=== PATIENT | female | born 1985 | race Caucasian/White ===

== ENCOUNTER → 2018-04-24 16:10 | Outpatient (CLI) | payer BC, SELFPAY ==
[2018-04-24 17:28] LABS: Absolute Lymphocyte Count 1.64 X10^3/ul (0.83-4.51); Absolute Neutrophil Count 4.5 X10^3/uL (2.0-7.7); Eosinophil# 0.03 X10^3/uL; Eosinophils% 0.4 % (0-5); Hematocrit 34.3 % (37-47); Hemoglobin 11.7 g/dl (12.0-15.0); Lymphocyte # 1.64 X10^3/ul (4.0); Lymphocyte % 24.5 % (19-41); Mean Corp Hgb Conc 34.1 g/gl (32-36); Mean Corpuscular Hgb 31.5 pg (27.0-32.0); Mean Corpuscular Volume 92.2 fL (81-99); Mean Platelet Vol. 9.9 fl (6.2-12.0); Monocyte% 7.5 % (0-10); Neutrophil % 67.3 % (47-70); Platelet Count 276 K/mm3 (150-450); RBC Distribution Width CV 12.7 % (11.6-14.6); RBC Distribution Width SD 41.5 fl (35.1-43.9); Red Blood Count 3.72 M/mm3 (4.2-5.4); White Blood Count 6.7 K/mm3 (4.4-11.0)
[2018-04-24 18:32] LABS: POSITIVE COUNT NO; POSITIVE DIFFERENTIAL NO; POSITIVE MORPHOLOGY NO
[2018-04-24 18:38] LABS: Color, Urine Yellow (Yellow); Glucose, Dipstick Normal (Normal); Ketone-Dipstick Negative (Negative); Leukocyte Esterase-Dipstick Negative /ul (Negative); Nitrite-Dipstick Negative (Negative); Occult Blood-Urine Negative /ul (Negative); Protein-Dipstick Negative (Negative); Specific Gravity, Urine 1.015 (1.002-1.030); Urine Bilirubin Dipstick Negative (Negative); Urine Clarity Clear (Clear); Urine Urobilinogen Normal (Normal); Urine pH 6.5 (5.0 - 8.0)
[2018-04-24 18:44] LABS: HIV - WCH Non-Reactive (Nonreactive); Rubella IgG 135.6 IU/mL; Vitamin D,25 Hydroxy 16.4 ng/mL (29.95-100.01)
[2018-04-24 19:21] LABS: Amphetamine Urine VISTA NEGATIVE (<1000 ng/mL); Barbiturate Urine VISTA NEGATIVE (< 200 ng/mL); Benzodiazepine Urine VISTA NEGATIVE (< 200 ng/mL); Cocaine Urine VISTA NEGATIVE (< 300 ng/mL); Ecstacy Urine VISTA NEGATIVE (< 500 ng/mL); Methadone Urine VISTA NEGATIVE (< 300 ng/mL); PCP Urine VISTA NEGATIVE (< 25 ng/mL); THC Urine VISTA NEGATIVE (< 50 ng/mL); Vista UDS pH Range 6
[2018-04-24 20:09] LABS: Chlamydia Trachomatis by PCR Negative (Negative); Neisserai gonorrhoeae by PCR Negative (Negative); Probe Check PASS; Sample Adequacy Control PASS; Specimen Processing Control PASS
[2018-04-27 11:37] LABS: HEPATITIS B SURFACE AG Negative (Negative); Hep C Antibodies <0.1 s/co ratio (0.0-0.9)
[2018-05-01 02:01] LABS: Prenatal RPR NONREACTIVE (NONREACTIVE)
== END ==
PROVIDERS: Visit Provider Obstetrics & Gynecology
DX: Z11.3 Encounter for screening for infections with a predominantly sexual mode of transmission (principal); Z32.01 Encounter for pregnancy test, result positive
CPT/HCPCS: 36415; 80307; 81002; 82306; 83036; 84443; 85025; 86703; 86762; 86803; 87340; 87491; 87591

== ENCOUNTER → 2018-06-22 09:57 | Outpatient (CLI) | payer BC, SELFPAY ==
[2018-06-25 03:08] LABS: AFP MoM Value 1.29 (.); AFP Value-EIA 38.2 ng/mL (.); Comment Report (.); DIA MoM Value 1.59 (.); DIA Value-EIA 211.11 pg/mL (.); DSR (By Age) 374 (.); DSR (Second Trimester) 1870 (.); Gestat. Age Based On As provided (.); Gestational Age 17.2 WEEKS (.); Maternal Age At EDD 33.9 yr (.); hCG MoM 1.73 (.)
== END ==
PROVIDERS: Visit Provider Obstetrics & Gynecology
DX: Z34.02 Encounter for supervision of normal first pregnancy, second trimester (principal)
CPT/HCPCS: 36415; 82105; 82677; 84702; 86336

== ENCOUNTER 2018-07-05 22:37 | Emergency (ER) | payer BC, SELFPAY ==
[2018-07-05 22:37] VITALS: BP 141/84; PULSE 103; RESP 22; TEMP 36.6; O2SAT 100; BMI 33.2
[2018-07-05] MEDS: Albuterol 2.5 MG/3 ML VIAL.NEB. INHALATION (23:01)
[2018-07-05 23:02] VITALS: PULSE 108; RESP 18
--- NOTE | 2018-07-05 23:16 | ED.VISSUMM ---
- ER Visit Summary Date of Service: 07/05/18 Chief Complaint: Cough History of Present Illness: The patient is a 32 F who presents with cough. She has had this for 2 days. Her cough is productive of yellow sputum. She denies fevers. No history of asthma. She is currently 20 weeks gestation. She has been trying Mucinex and Tylenol without any relief. She is also been doing saline nasal spray. Physical Examination: Vital signs reviewed. HEENT exam does show some slight posterior oropharyngeal erythema. Heart is regular rate and rhythm without murmurs. Lungs are clear to auscultation. Abdomen is soft and nontender. Extremities reveal no edema. Skin exam normal. Neurologic exam normal. Test Results: None performed Emergency Department Course and Treatment: Patient was given albuterol. Due to her symptoms I will give her a azithromycin. I will also give her an albuterol inhaler. She will follow-up with her PCP and CLINICAL LAB SCIENTIST. Treatment Plan: [] Disposition: Discharge Impression: Acute bronchitis This note was generated with smsPREP dictation software. It may contain incorrect words, spelling, and punctuation that were not noted in review of the chart prior to signing ED Disposition - Plan for ED Patient: Chief Complaint: Cough Referrals: Zaheer Hamilton MD [Primary Care Provider] -
--- NOTE | 2018-07-05 23:41 | ED.DCSUM_ITS ---
- ER Visit Summary Date of Service: 07/05/18 Chief Complaint: Cough History of Present Illness: The patient is a 32 F who presents with cough. She has had this for 2 days. Her cough is productive of yellow sputum. She denies fevers. No history of asthma. She is currently 20 weeks gestation. She has be en trying Mucinex and Tylenol without any relief. She is also been doing saline nasal spray. Physical Examination: Vital signs reviewed. HEENT exam does show some slight posterior oropharyngeal erythema. Heart is regular rate and rhythm without murmurs. Lungs are clear to auscultation. Abdomen is soft and nontender. Extremities reveal no edema. Skin exam normal. Neurologic exam normal. Test Results: None performed Emergency Department Course and Treatment: Patient was given albuterol. Due to her symptoms I will give her a azithromycin. I will also give her an albuterol inhaler. She will follow-up with her PCP and JOIST SETTER. Treatment Plan: [] Disposition: Discharge Impression: Acute bronchitis This note was generated with Volo[employer] dictation software. It may contain incorrect words, spelling, and punctuation that were not noted in review of the chart prior to signing ED Disposition - Plan for ED Patient: Chief Complaint: Cough Referrals: Zaheer Hamilton MD [Primary Care Provider] -
--- NOTE | 2018-07-05 23:41 | ED.DEP ---
ED Disposition - Plan for ED Patient: Disposition: Home or Assisted Living Chief Complaint: Cough Instructions: Acute Bronchitis Prescriptions: Albuterol Inhaler [Ventolin Hfa] 1 - 2 puff INHALATION Q4H PRN PRN #1 inhaler PRN Reason: Wheezing Azithromycin [Zithromax] 250 mg PO DAILY #4 tab Referrals: Zaheer Hamilton MD [Primary Care Provider] -
[2018-07-05] MEDS: Azithromycin 250 MG Tablet 500 MG PO (23:53)
[2018-07-05 23:56] VITALS: BP 129/69; PULSE 100; RESP 20; TEMP 36.5; O2SAT 98
== END 2018-07-05 23:57 | disposition home or self-care (01) ==
PROVIDERS: Emergency Provider Emergency Medicine; Family Provider Family Medicine; PCP Family Medicine
DX: O99.512 Diseases of the respiratory system complicating pregnancy, second trimester (principal); J20.9 Acute bronchitis, unspecified; Z3A.20 20 weeks gestation of pregnancy
CPT/HCPCS: 94640; 99283

== ENCOUNTER → 2018-09-15 | Outpatient (CLI) | payer BC, SELFPAY ==
[2018-09-15 17:16] LABS: Hematocrit 31.3 % (37-47); Hemoglobin 10.5 g/dl (12.0-15.0); Mean Corp Hgb Conc 33.5 g/gl (32-36); Mean Corpuscular Hgb 30.6 pg (27.0-32.0); Mean Corpuscular Volume 91.3 fL (81-99); Mean Platelet Vol. 9.9 fl (6.2-12.0); Platelet Count 252 K/mm3 (150-450); RBC Distribution Width CV 14.1 % (11.6-14.6); RBC Distribution Width SD 45.2 fl (35.1-43.9); Red Blood Count 3.43 M/mm3 (4.2-5.4); White Blood Count 8.1 K/mm3 (4.4-11.0)
[2018-09-15 17:18] LABS: Scan Indicated on CBC? Y/N NO
[2018-09-15 17:34] LABS: Glucose Challenge Gest 1H 50g 170 mg/dL (70-140)
[2018-09-15 17:47] LABS: Vitamin D,25 Hydroxy 27.3 ng/mL (29.95-100.01)
[2018-09-16 15:29] LABS: Ferritin 6 ng/mL (8-252); Iron Binding Capacity,Total 495 ug/dL (250-450)
== END | disposition home or self-care (01) ==
PROVIDERS: Visit Provider Obstetrics & Gynecology
DX: O99.283 Endocrine, nutritional and metabolic diseases complicating pregnancy, third trimester (principal); E55.9 Vitamin D deficiency, unspecified; O99.019 Anemia complicating pregnancy, unspecified trimester; Z3A.00 Weeks of gestation of pregnancy not specified
CPT/HCPCS: 36415; 82306; 82728; 82950; 83550; 85027

== ENCOUNTER → 2018-09-21 06:59 | Outpatient (CLI) | payer BC, SELFPAY ==
[2018-09-21 07:43] LABS: Glucose GTT-Gestation. Fasting 85 mg/dL (<105)
[2018-09-21 08:45] LABS: Glucose GTT-Gestational 1 Hr 143 mg/dL (<190)
[2018-09-21 10:13] LABS: Glucose GTT-Gestational 2 Hr 121 mg/dL (<165)
[2018-09-21 11:04] LABS: Glucose GTT-Gestational 3 Hr 114 L (<145)
== END ==
PROVIDERS: Family Provider Family Medicine; PCP Family Medicine; Referring Provider Obstetrics & Gynecology; Visit Provider Obstetrics & Gynecology
DX: O24.912 Unspecified diabetes mellitus in pregnancy, second trimester (principal); Z3A.00 Weeks of gestation of pregnancy not specified
CPT/HCPCS: 36415; 82951; 82952

== ENCOUNTER → 2018-11-03 11:10 | Outpatient (CLI) | payer BC, SELFPAY | PROVIDERS: Visit Provider Obstetrics & Gynecology | DX: Z36.85 Encounter for antenatal screening for Streptococcus B (principal) | CPT/HCPCS: 87081 ==

== ENCOUNTER 2018-11-19 12:05 | Outpatient (CLI) | payer BC, SELFPAY ==
[2018-11-19 12:31] VITALS: BMI 39.9
--- NOTE | 2018-11-19 12:39 | NURSING ---
unable to reach cervix on exam. Pt states checked in office on and cervix closed.
--- NOTE | 2018-11-19 13:13 | NURSING ---
This RN unable to reach cervix due to high station.
--- NOTE | 2018-11-19 13:14 | NURSING ---
Dr. Lawton discharging pt. No repeat exam ordered
--- NOTE | 2018-11-20 08:49 | OB.TRI.NOTE ---
History of Present Illness Date of Service: 11/19/18 Was patient seen by the physician?: No Reason For Visit: DECREASED MOVEMENT,R/O LABOR Date of Service: 11/19/18 Final GEETA: 11/28/18 Gestational age: 38 Weeks and 5 Days History of Present Illness: 32 yo female at 33 5/7 wk presents for labor check and dec movement. Allergies No Known Allergies Allergy (Verified 07/05/18 22:40) NST - FHR Rate Baby A Baseline: 140-150s avg variability. accels to 180s Variability:: Moderate Accelerations:: 15 x 15 Decelerations:: None NST Reactive:: Yes, Appropriate for gestational age FHR Category:: Category I Uterine Activity:: Irritability with rare UC Impression/Plan 38 5/7 wk false labor Reactive NST Home. Keep next ofc appt Return to hospital if inc s/sx of labor.
== END 2018-11-19 13:17 | disposition home or self-care (01) ==
LOC: WPOUT 12:14 → WP 12:15
PROVIDERS: Family Provider Family Medicine; PCP Family Medicine; Referring Provider Obstetrics & Gynecology; Visit Provider Obstetrics & Gynecology
DX: O47.1 False labor at or after 37 completed weeks of gestation (principal); O36.8130 Decreased fetal movements, third trimester, not applicable or unspecified; Z3A.38 38 weeks gestation of pregnancy
CPT/HCPCS: 59025; 59050; 99218; G0378

== ENCOUNTER 2018-12-06 19:30 | Inpatient (IN) | payer BC, SELFPAY ==
[2018-12-06 19:45] VITALS: BMI 40.0
[2018-12-06] MEDS: Lactated Ringers 1,000 ML 50 ML IV (19:45)
[2018-12-06 20:11] LABS: Absolute Lymphocyte Count 1.35 X10^3/ul (0.83-4.51); Absolute Neutrophil Count 4.7 X10^3/uL (2.0-7.7); Eosinophil# 0.03 X10^3/uL; Eosinophils% 0.5 % (0-5); Hematocrit 32.5 % (37-47); Hemoglobin 11.3 g/dl (12.0-15.0); Lymphocyte # 1.35 X10^3/ul (4.0); Lymphocyte % 20.7 % (19-41); Mean Corp Hgb Conc 34.8 g/gl (32-36); Mean Corpuscular Hgb 31.7 pg (27.0-32.0); Mean Corpuscular Volume 91.3 fL (81-99); Mean Platelet Vol. 10.4 fl (6.2-12.0); Monocyte# 0.48 X10^3/uL; Monocyte% 7.4 % (0-10); Neutrophil # 4.66 X10^3/uL (2.7-7.7); Neutrophil % 71.2 % (47-70); POSITIVE COUNT NO; POSITIVE DIFFERENTIAL NO; POSITIVE MORPHOLOGY NO; Platelet Count 211 K/mm3 (150-450); RBC Distribution Width CV 14.7 % (11.6-14.6); RBC Distribution Width SD 48.1 fl (35.1-43.9); Red Blood Count 3.56 M/mm3 (4.2-5.4); White Blood Count 6.5 K/mm3 (4.4-11.0)
[2018-12-06] MEDS: 0.9% Saline Lock 10 ML Syringe IV ×2 (20:20→23:26)
[2018-12-07] VITALS (9 sets, daily range): BP systolic 105–146; BP diastolic 65–91; PULSE 95–116; RESP 18; TEMP 36.9–37.6; O2SAT 96–98
[2018-12-07] MEDS: Lactated Ringers 1,000 ML 50 ML IV ×5 (00:35→18:02)
[2018-12-07] MEDS: Terbutaline 1 MG/ML Vial 0.25 MG SC (00:43)
[2018-12-07] MEDS: fentaNYL-bupivacaine (epidural) 100 ML BAG EPIDURAL ×3 (03:00→12:04)
[2018-12-07] MEDS: Oxytocin 30 units/NS 500 ml 30 UNITS/500 ML IV.SOLN IV (04:36)
[2018-12-07] MEDS: Acetaminophen 325 MG Tablet PO (17:57)
--- NOTE | 2018-12-07 18:00 | NURSING ---
this is replacing the epidural from this morning.
[2018-12-07] MEDS: CHLORHEXIDINE GLUC 2% CLOTH 1 EACH TOWELETTE TOPICAL (18:39)
[2018-12-07] MEDS: Sodium Citrate/Citric Acid 30 ML UDC PO (18:50)
[2018-12-07] MEDS: Cefazolin 2 GM in 0.9% Normal Saline 100 ML IV (19:06)
--- NOTE | 2018-12-07 19:16 | PLAC_PTH ---
PATIENT: JOSE A ANGUIANO LOC: [facility] U#:[id number] AGE/SX: 32/F ROOM: WP008 RE12/06/[address]: Dr. Tim Gao MD : 1985 BED: 1 DIS: 12/09/2018 SPEC #: [id number] RECD: 12/08/18 01:08 STATUS: SUZY TRUJILLOTammy #: [id number] CORRY: 12/07/18 19:[address]: Tim Gao DEPT: SURGICAL PATHOLOGY RECD BY: Kevin Rubio ENTERED: 12/08/18 09:41 SP TYPE: PLACENTA OTHR DR: Dr. Hector Hamilton MD Tissues: Placenta, NOS Procedures: Surgery Specimen Level V HEADER OPERATION: section PRE-OP DIAGNOSIS: Maternal fever TISSUE SUBMITTED: Placenta MICROSCOPIC DIAGNOSIS Placenta: Placental disc - third trimester placenta (575 gm). Membranes - no pathologic diagnosis. Umbilical cord - three blood vessels and no pathologic diagnosis. SJ:christelle 12/11/18 MICROSCOPIC DESCRIPTION Slides are reviewed. GROSS DESCRIPTION SPECIMEN: PLACENTA / CLINICAL INFORMATION: A. Weight: 3.72 kg B. Gestational Age: 41 weeks C. Sex: Female PLACENTAL WEIGHT (POST FIXATION): 575 gm PLACENTAL DIMENSIONS: 26 x 19 x 4 cm. PLACENTAL SHAPE: Triangular PLACENTAL WEIGHT FOR GESTATIONAL AGE: Within 10-99th percentile MEMBRANES - Present. The membranes are fragmented and partly detached from the placenta. A. Insertion: Marginal B. Site of rupture from edge: Distance of rupture cannot be assessed. C. Color of membrane: Amin-ohara D. Abnormalities: None UMBILICAL CORD - Present A. Color: Amin-ohara B. Insertion: Paracentral C. Length: 24 cm D. Diameter: 1 cm E. Number of vessels: Three F. Abnormalities: None PLACENTAL DISC - Present A. Color of surface: Amin-ohara B. surface abnormalities: None C. Maternal cotyledons: It is partly disrupted, however, appears to be complete. D. Attached retro placental clot: No clot E. Cut surface: Dark red and spongy F. Lesions: None G. Separate clot: Absent SECTIONS SUBMITTED: 1. Membrane roll 2. Cord, maternal end 3. Cord, end 4. Placental disc, and maternal surfaces 5. Placental disc, and maternal surfaces 6. Placental disc, and maternal surfaces SJ:christelle 12/09/18 TC:4 CPT: 57334
[2018-12-07] MEDS: Ketorolac 30 MG/ML Syringe IV (19:50)
--- NOTE | 2018-12-07 20:10 | PCM.HP.BLA ---
History and Physical Date of Admission: 12/06/18 History of this : 32 yo female Ab0 with EDC 11/28/2018 by Ultrasound, presents to Labor and Delivery. care remarkable for - Iron deficiency anemia, Abnormal glucola 170, Epidural planned. Pertinent Past Medical History: Non smoker Allergies: No Known Drug Allergies Medications: During - multivitamin tablet; Microgestin FE 1/20 (28) 1 mg-20 mcg (21)/75 mg (7) tablet; loratadine 10 mg tablet; 28 mg-800 mcg tablet; Vitamin B-6 50 mg capsule; Vitamin D3 4,000 unit capsule; ferrous sulfate 325 mg (65 mg iron) tablet; Protonix 40 mg tablet,delayed release Review of Systems: Non-contributory PHYSICAL EXAMINATION General Appearence: 32 yo female in no acute distress Vital Signs: AF, VSS Heart: RRR without rubs or gallops Lungs: CTA x 2 Breasts: deferred Abdomen: gravid Pelvis: Cervix: closed/thick/high Presentation: cephalic Station: Fetus: Size: AGA Movement: present Heart: present Impression /Plan: Postdates Intrauterine for induction. Preperations in progress for delivery. Plan cytotec induction.
--- NOTE | 2018-12-07 20:13 | OP.PCM_ITS ---
Delivery Classification: LAY Final GEETA: 11/28/18 Final GEETA Source: US <20 weeks Gestational age: 41 Weeks and 2 Days doctor who attended delivery (if requested by OB): Heather Malcolm - Tachy Indications: Failure to Progress, Occiput Posterior Presentation, Increasing Stress, Suspected Early Chorioamnionitis Description of Procedure: Surgeon: Tim Gao MD, FACOG Vice President Underwriting: SULAIMAN Clark Anesthesia: Oneil Roldan CRNA Anesthesia: Epidural with Duramorph Pre-Op Diagnosis: Failure to Progress, Increasing Stress, Suspected Early Chorioamnionitis Post Op Diagnosis: Failure to Progress, Occiput Posterior Presentation, Increasing Stress, Suspected Early Chorioamnionitis Procedure: Primary Low Transverse Cervical Caesarean Section Findings: Viable female with Apgars of 8/9 in occiput posterior presentation with clear amniotic fluid and normal three-vessel placenta. Indication: This is a 32-year-old who presents for her first at 41+ weeks gestation due to the above diagnosis. care has otherwise been uneventful. She was induced with Cytotec last evening and progressed to about 4 cm by 11 a.m. this morning where rupture of membrane showed clear fluid. She then further progressed to complete and pushing and after approximately 2 hours of pushing heart tones were noted to be in the 170-180s and maternal temperature spike to 101.0 ?F. Station remained at -2 to -3 with a narrow pelvis noted. Given this the patient desired that we proceed with the above surgery. She and her family were counseled regarding the risk and indications of this procedure including the possibility of bleeding infection and injury to surrounding structures such as bowel bladder. All questions were answered. Procedure: Patient was taken to the operating room where after epidural anesthesia was redosed, the patient was prepped and draped in usual sterile fashion; a Ramirez catheter had been previously placed. The abdomen was entered through a Pfannenstiel incision and peritoneum was entered bluntly. After developing a bladder flap on the lower uterine segment a low transverse incision was made on the uterus and head was delivered onto the operative field the nose mouth and oropharynx were bulb suctioned. Subsequently a viable female was born with Apgars of 8/9. The infant was noted to cry move all extremities vigorously on the operative field. The umbilical cord was doubly clamped and ligated and infant handed to the nursery personnel who were present for the delivery. Placenta was delivered and noted to be 3 vessels and normal. It was necessary to use a banjo curette to remove the remaining placental tissue which was somewhat adherent. Uterus was exteriorized and remaining placental tissue was removed. The uterus was then closed in 2 layers first with running locked 0 Vicryl suture followed by a second imbricating layer with 0 Vicryl suture. 0 Vicryl suture was then used in a horizontal mattress interrupted fashion to affect final hemostasis of the uterine incision line. Normal fallopian tubes and ovaries were visualized and the uterus was returned to the pelvis. Hemostasis was noted and rectus abdominis muscles were reapproximated in the midline with interrupted Number 0 Vicryl suture in a horizontal mattress fashion. Fascia was closed with running Number 1 PDS Strata fix suture. Subcutaneous tissue was irrigated with copious amounts of saline solution and then closed with running 3-0 Vicryl suture. Skin was closed with 4-0 monocryl suture in a running subcuticular fashion. Steri strips, telfa, and tape were placed across the incision. The patient tolerated the procedure well and was taken to the recovery room in satisfactory condition. Sponge, needle, and instrument counts were all reportedly correct. EBL was 750 cc. Ancef 2 gms IV was given prior to the procedure. Spicemen to Pathology: Placenta Complications: None Amniotic Membrane Rupture Type: Artificial Amniotic Fluid Description: Clear Placenta Disposition: Sent to Pathology Specimen(s) sent to pathology: Placenta Drain: Ramirez to straight drain Fluids Replaced: Crystalloid Cord Entanglement: None Cord Vessel Description: 3 Vessels Esitmated Blood Loss (ml): 750 cc Gender: Female (1 minute): 8 (5 minute): 9 Pre-op Antibiotic Given: Ancef 2 grams IV x1 Complications: None - Admit VTE Documentation VTE Present on Admission: Yes VTE Mechan Device Prophylaxis: SCD's
--- NOTE | 2018-12-07 20:26 | DCINST_ITS ---
Discharge Diet: No Restrictions Discharge Activity: May not drive while taking narcotic pain medications., May Shower, May Take a Tub Bath May resume sexual activity in: 4-6 weeks Lifting Restrictions: 20 pounds Additional Activity Instructions:: Nothing in the vagina for 4-6 weeks. You may return to work/school in 6 weeks. Call your doctor if your incision/area has: Continuous Slow Oozing, Sudden Increased Bleeding, Increased Pain/ Swelling, Increased Redness, Foul Smelling Discharge Call your doctor if you observe: Fever of 101 or Higher, Inability to urinate, Inability to have a bowel movement, Using more than one pad per hour Additional Instructions: If you experience any of the following, contact your healthcare provider. * Bleeding that soaks a pad every hour for 2 hours * Fever 100.4 or higher * Unrelieved incision or abdominal pain * Swelling, redness, discharge or bleeding from your incision or episiotomy site * Your incision begins to separate * Problems urinating (including inability to urinate or burning while urinating). * Visual changes * Severe headache * Flu-like symptoms * Pain or redness in one of both of your breasts * Pain, warmth, tenderness or swelling in your legs, especially the calf area * Frequent nausea and vomiting * Symptoms of depression or anxiety If you experience any of the following, call 911 or go to the nearest Emergency Room. * Chest pain * Problems breathing * Seizure activity * Partial or complete paralysis of a body part, slurred speech, weakness or drooping of the face, or a sudden inability to walk or hold your balance Allergies/Adverse Reactions: Allergies No Known Allergies Allergy (Verified 12/06/18 19:43) Medications to take at Discharge Cholecalciferol (Vitamin D3) [Vitamin D3] 2,000 unit PO DAILY 07/05/18 Pnv No.95/Ferrous Fum/Folic AC [ Caplet] 1 each PO DAILY 07/05/18 Ferrous Sulfate [Iron] 325 mg PO BID 11/19/18 Fluticasone 0.05% [Flonase Nasal Mcmillan] 1 spray NASAL DAILY 11/19/18 Pantoprazole Sodium [Protonix] 40 mg PO DAILY 11/19/18 Docusate Sodium [Colace] 100 mg PO BID PRN PRN #60 cap 12/07/18 Oxycodone [Oxyir] 5 mg PO Q6H PRN PRN 7 Days #20 tab 12/07/18 The following prescriptions were given: Docusate Sodium [Colace] 100 mg PO BID PRN PRN #60 cap PRN Reason: Constipation Prescription Printed Oxycodone [Oxyir] 5 mg PO Q6H PRN PRN 7 Days #20 tab PRN Reason: Severe Pain (6-10) Prescription Printed Follow-Up: Call to make an appointment with your doctor for an incision check in 1-2 weeks. You will also need a 6 week post- follow up appointment. Test results from this visit will be discussed in further detail at your follow- up appointment, if applicable. Please Follow Up With: Tim Gao MD - [phone] When: Call to make an appointment for an incision check in 2 weeks. Primary Care Physician: Zaheer Hamilton MD [Primary Care Provider] -
[2018-12-07] MEDS: Lactated Ringers 1,000 ML 100 ML IV (20:30)
[2018-12-08] VITALS (17 sets, daily range): BP systolic 111–129; BP diastolic 58–81; PULSE 83–100; RESP 14–18; TEMP 36.3–36.7; O2SAT 94–99
[2018-12-08 01:28] LABS: Pathology Specimen OB SEE PATHOLOGY REPORT
[2018-12-08] MEDS: Ketorolac 30 MG/ML Syringe IV ×4 (02:06→19:42)
[2018-12-08] MEDS: Cefazolin 1 GM/50 ML BAG IV ×2 (03:08→10:47)
[2018-12-08 04:49] LABS: Hematocrit 25.6 % (37-47); Hemoglobin 8.7 g/dl (12.0-15.0); Mean Corpuscular Hgb 31.1 pg (27.0-32.0); Mean Corpuscular Volume 91.4 fL (81-99); Mean Platelet Vol. 10.2 fl (6.2-12.0); Platelet Count 174 K/mm3 (150-450); RBC Distribution Width CV 14.6 % (11.6-14.6); RBC Distribution Width SD 46.8 fl (35.1-43.9); White Blood Count 13.4 K/mm3 (4.4-11.0)
[2018-12-08 04:52] LABS: Scan Indicated on CBC? Y/N NO
[2018-12-08] MEDS: Lactated Ringers 1,000 ML 100 ML IV (06:27)
[2018-12-08] MEDS: 0.9% Saline Lock 10 ML Syringe IV ×3 (08:26→19:42)
--- NOTE | 2018-12-08 09:00 | PCM.PN.OB ---
Subjective: Patient without complaints. Tolerating diet well. Positive flatus. Pain well controlled. - Physical Exam Vital Signs Temp Pulse Resp BP Pulse Ox 97.8 F 84 16 119/63 99 12/08/18 08:20 12/08/18 08:20 12/08/18 08:20 12/08/18 08:20 12/08/18 08:20 Oxygen Delivery Method Room Air Weight: 271 lb 2.697 oz Body Mass Index (BMI) 40.0 Intake and Output for Last 24 Hours 12/06/18 12/07/18 12/08/18 23:59 23:59 23:59 Intake Total 5630 / 5630 1051 / 1051 Output Total 2150 / 2150 800 / 800 Balance 3480 / 3480 251 / 251 Laboratory Tests Past 24 Hrs 12/08/18 04:30 WBC 13.4 H RBC 2.80 L Hgb 8.7 L Hct 25.6 L MCV 91.4 MCH 31.1 MCHC 34.0 RDW 14.6 RDW Differential 46.8 H Plt Count 174 MPV 10.2 Wound is clean, dry, intact. Good urine output. Hemoglobin as expected Medical Necessity - Tobacco Use Smoking Status: Never smoker Assessment/Plan Doing well postoperative day #1 status post primary section. Anemia likely from blood loss during surgery. Continuing present care.
[2018-12-08] MEDS: Fluticasone 0.05% 1 SPRAY NASAL.SRY NASAL (10:47)
[2018-12-08] MEDS: Pantoprazole Sodium 40 MG Tablet PO (10:47)
[2018-12-09 02:00] VITALS: BP 123/79; PULSE 105; RESP 18; TEMP 36.6
[2018-12-09] MEDS: Ketorolac 30 MG/ML Syringe IV ×3 (02:03→13:59)
[2018-12-09] MEDS: 0.9% Saline Lock 10 ML Syringe IV ×3 (02:03→13:59)
[2018-12-09 08:10] VITALS: BP 131/73; PULSE 88; RESP 20; TEMP 36.9; O2SAT 96
--- NOTE | 2018-12-09 09:24 | PCM.PN.OB ---
Subjective: Patient without complaints. Tolerating diet well. Breast-feeding going well. Positive flatus. Ready for discharge home later today. - Physical Exam Vital Signs Temp Pulse Resp BP Pulse Ox 98.5 F 88 20 H 131/73 H 96 12/09/18 08:10 12/09/18 08:10 12/09/18 08:10 12/09/18 08:10 12/09/18 08:10 Oxygen Delivery Method Room Air Weight: 271 lb 2.697 oz Body Mass Index (BMI) 40.0 Intake and Output for Last 24 Hours 12/07/18 12/08/18 12/09/18 23:59 23:59 23:59 Intake Total 5630 / 5630 1051 / 1051 Output Total 2150 / 2150 2800 / 2800 Balance 3480 / 3480 -1749 / -1749 Wound is clean, dry, intact. Medical Necessity - Tobacco Use Smoking Status: Never smoker Assessment/Plan Doing well postoperative day #2 status post primary section. Will release to home with routine instructions.
--- NOTE | 2018-12-09 09:26 | PCM.DC.BLA ---
Discharge Summary Date of Admission: 12/06/18 Date of Discharge: 12/09/18 Summary: Admission diagnosis: Intrauterine with Postdatism Discharge diagnosis: Postdatism, Failure to Progress, Occiput Posterior Presentation, Increasing Stress, Suspected Early Chorioamnionitis Procedure: Primary Low Transverse Cervical Section HPI: Uneventful care. PE: Unremarkable. Hospital Course: The patient is a 32 year old G 1 P 0 who presented to L and D at 41+ weeks gestation. She subsequently had a primary for the above. Postoperatively she did well demonstrating a stable HGB on POD 1 and bowel fxn by POD 2 at which time it was felt she was ready for discharge. Homegoing Instruction: She was instructed not to drive for several days or if using narcotic pain medication, not to put anything in the vagina for 4 weeks, not to lift >25 lbs for 6 weeks and to call the office for an appointment in 2 weeks and 6 weeks. Discharge Medications: She was given a prescription for Oxycodone and Colace and also plans to use Aleve or Motrin or Tylenol at home as needed for pain and constipation. - Physical Exam Vital Signs Temp Pulse Resp BP Pulse Ox 98.5 F 88 20 H 131/73 H 96 12/09/18 08:10 12/09/18 08:10 12/09/18 08:10 12/09/18 08:10 12/09/18 08:10 Oxygen Delivery Method Room Air Weight: 271 lb 2.697 oz Body Mass Index (BMI) 40.0 Intake and Output for Last 24 Hours 12/07/18 12/08/18 12/09/18 23:59 23:59 23:59 Intake Total 5630 / 5630 1051 / 1051 Output Total 2150 / 2150 2800 / 2800 Balance 3480 / 3480 -1749 / -1749
[2018-12-09] MEDS: Fluticasone 0.05% 1 SPRAY NASAL.SRY NASAL (11:42)
[2018-12-09] MEDS: Pantoprazole Sodium 40 MG Tablet PO (11:42)
[2018-12-09 14:10] VITALS: BP 126/78; PULSE 102; TEMP 36.6; O2SAT 98
== END 2018-12-09 15:05 | disposition home or self-care (01) | DRG 788 ==
PROVIDERS: Admitting Provider Obstetrics & Gynecology; Family Provider Family Medicine; PCP Family Medicine; Referring Provider Obstetrics & Gynecology; Visit Provider Obstetrics & Gynecology
DX: O62.2 Other uterine inertia (principal); O77.9 Labor and delivery complicated by fetal stress, unspecified; O32.8XX0 Maternal care for other malpresentation of fetus, not applicable or unspecified; O48.0 Post-term pregnancy; O99.02 Anemia complicating childbirth; D50.9 Iron deficiency anemia, unspecified; Z3A.41 41 weeks gestation of pregnancy; Z37.0 Single live birth
CPT/HCPCS: 59025; 59050; 85025; 85027; 86850; 86900; 88307; 99218; J7120; A4216; G0378; J2405

== ENCOUNTER → 2018-12-12 12:17 | Outpatient (CLI) | payer BC, SELFPAY ==
[2018-12-06 19:45] VITALS: BMI 40.0
== END ==
PROVIDERS: Family Provider Family Medicine; PCP Family Medicine; Visit Provider Obstetrics & Gynecology
DX: Z39.1 Encounter for care and examination of lactating mother (principal)
CPT/HCPCS: 96152

== ENCOUNTER → 2020-04-05 10:49 | Outpatient (CLI) | payer BC, SELFPAY ==
[2020-04-05 13:09] LABS: Color, Urine Straw (Yellow); Glucose, Dipstick Normal (Normal); Ketone-Dipstick Negative (Negative); Leukocyte Esterase-Dipstick 25 /ul (Negative); Nitrite-Dipstick Negative (Negative); Occult Blood-Urine Negative /ul (Negative); Protein-Dipstick Negative (Negative); Urine Bilirubin Dipstick Negative (Negative); Urine Clarity Clear (Clear); Urine Urobilinogen Normal (Normal)
[2020-04-05 13:11] LABS: Absolute Lymphocyte Count 1.36 X10^3/uL (0.83-4.51); Absolute Neutrophil Count 5.1 X10^3/uL (2.0-7.7); Basophil# 0.01 X10^3/uL; Basophil% 0.1 % (0-1); Eosinophil# 0.03 X10^3/uL; Eosinophils% 0.4 % (0-5); Hematocrit 36.5 % (37-47); Lymphocyte # 1.36 X10^3/ul (4.0); Lymphocyte % 19.7 % (19-41); Mean Corp Hgb Conc 32.9 g/dL (32-36); Mean Corpuscular Hgb 30.2 pg (27.0-32.0); Mean Corpuscular Volume 91.7 fL (81-99); Mean Platelet Vol. 10.3 fl (6.2-12.0); Monocyte# 0.41 X10^3/uL; Monocyte% 5.9 % (0-10); NRBC Flagged by Analyzer 0 % (0-5); Neutrophil # 5.06 X10^3/uL (2.7-7.7); Neutrophil % 73.5 % (47-70); Platelet Count 277 K/mm3 (150-450); RBC Distribution Width CV 12.8 % (11.6-14.6); Red Blood Count 3.98 M/mm3 (4.2-5.4); White Blood Count 6.9 K/mm3 (4.4-11.0)
[2020-04-05 13:29] LABS: Amphetamine Urine VISTA NEGATIVE (<1000 ng/mL); Barbiturate Urine VISTA NEGATIVE (< 200 ng/mL); Benzodiazepine Urine VISTA NEGATIVE (< 200 ng/mL); Cocaine Urine VISTA NEGATIVE (< 300 ng/mL); Ecstacy Urine VISTA NEGATIVE (< 500 ng/mL); Methadone Urine VISTA NEGATIVE (< 300 ng/mL); PCP Urine VISTA NEGATIVE (< 25 ng/mL); THC Urine VISTA NEGATIVE (< 50 ng/mL); Vista UDS pH Range 7
[2020-04-06 01:11] LABS: Prenatal RPR NONREACTIVE (NONREACTIVE)
[2020-04-06 10:20] LABS: HIV - WCH Non-Reactive (Nonreactive); Hepatitis B Surface Antigen Non-Reactive (Nonreactive); Hepatitis C Antibody Non-Reactive (Nonreactive); Vitamin D,25 Hydroxy 25.6 ng/mL
[2020-04-06 10:24] LABS: Rubella IgG 115.1 IU/mL
[2020-04-07 03:06] LABS: Chlamydia By Nucleic Acid AMP Negative (Negative)
[2020-04-07 06:38] LABS: Gonococcus By Nucleic Acid AMP Negative (Negative)
[2020-04-07 19:08] LABS: Free T3 2.4 pg/mL (2.18-3.98); T4 Free Direct 1.05 ng/dL (0.76-1.46)
[2020-04-09 11:18] LABS: Thyroid Peroxidase AB < 9 IU/mL (0-34)
== END ==
PROVIDERS: PCP Family Medicine; Visit Provider Obstetrics & Gynecology
DX: Z34.01 Encounter for supervision of normal first pregnancy, first trimester (principal); E02 Subclinical iodine-deficiency hypothyroidism; Z11.3 Encounter for screening for infections with a predominantly sexual mode of transmission
CPT/HCPCS: 36415; 80307; 81002; 82306; 84439; 84443; 84481; 85025; 86376; 86703; 86762; 86803; 87340; 87491; 87591

== ENCOUNTER 2020-05-01 07:00 | Outpatient (RCR) | payer BC, SELFPAY ==
--- NOTE | 2020-04-28 08:44 | HP.PTEVAL_ITS ---
Patient's Visit Information JOSE A ANGUIANO is a 34 year old F referred to Physical Therapy by Dr. Eun Brantley MD with a diagnosis of vertigo. Date of Evaluation: 04/28/20 Physical Therapist: Sammy Houston DPT, OCS, CSCS - Visit Plan Frequency: 1x/Week Duration: 2-4 Weeks Plan: weekly as needed x 2-4 for positional checks and monitor further vestibular needs . - Subjective [facility] sent her over here. She is with twins and dizzyness is far worse. Has had bouts of it. Is 10 weeks along. Has been about 4 weeks of dizzyness adn unable to wrok until yesterday. Insidious onset. This happens a couple times per year but not this bad. This is more intense. Intermittent dizzyness. Feels like things on side of head are bouncing and lightheaded. Duration is until she tries to close eyes or go dark or stair at stationary object. Walking and crowded places can be worse. No spinning described. Balance is not a problem. Sleep is better in the dark. Position changes are not a problem. Bending over can cause the problem. 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 avoids going in pens with cows due to this. Basic ADLs are OK. Hobbies include chasing her 1.5 yr old around. - Objective Walks and trasnfers normal and I. Cervical aROM WFL and slow to move but no pain. VOR walking is challenging. Head movements are where she loses points on her balance test. - R hallpike mary. + L halpike mary for up torsional nystagmus of 8 second duration. Treated with Sulaiman adn then - L HD test. - Balance Scores Functional Gait Assessment Score: 27 % Disability: 10.0000 CATSIB Score (Max score 120 seconds): 120 - Goals Goal 1:: abolish dizzyness with position change. Goal Time Frame: 2-4 Weeks Goal 2:: pt feel 100% better with dizzyness. Goal Time Frame: 2-4 Weeks Goal 3:: Comfortable getting back to full work duties. Goal Time Frame: 2-4 Weeks - Rehabilitation Potential Physical Therapy Diagnosis: BPPV L Rehabilitation Potential: Good - Anticipated Interventions Patient/Client Instruction: Educate patient on: Condition, Plan of Care For the Purpose of:: To increase tolerance to activity/condition/position Comment: posotional and vestibular ex For the Purpose of:: To increase tolerance to activity/condition/position, To improve ability of physical actions for home/community/work/leisure Thank you for the opportunity to evaluate your patient. For Medicare and Medicare HMO plans, please review the plan of care and approve it. It will need to be FAXED BACK to us at [phone] for Medicare purposes. For Medicare only, by signing this I certify the plan of care. Please let me know if there are questions or concerns regarding this plan of care. Physician Signature:___ Date:
--- NOTE | 2020-05-01 07:18 | HP.PTDCSUM ---
It has been my pleasure to treat JOSE A ANGUIANO referred by Dr. Eun Brantley MD, with the diagnosis of vertigo for a total of 2 visit(s). Discharge Date: 05/01/20 Please see the following information for a summary of their discharge status. Subjective: Friday was a little tough, No dizzyness the rest of the weekend. Obeyed precautions on Friday. Activities pretty normal over the weekends. Haven't had two good days like that in a month. Feels confident working out in the field today. % Improvement: 100 Objective/Function: FGA back to normal. - B alpike mary and - roll test. All MSQ positions are benign today. Overall abolished. Goal 1:: abolish dizzyness with position change. Goal Progress: Goal Met Goal 2:: pt feel 100% better with dizzyness. Goal Progress: Goal Met Goal 3:: Comfortable getting back to full work duties. Goal Progress: Goal Met Plan: d/c. Discharge Comments: Did well with positional treatment. Will let doctor know if dizzyness returns. If there are questions or concerns regarding this patient's physical therapy, please feel free to call me at [phone]. Thank you for the referral of this patient. Sincerely, Sammy Houston, DPT, OCS, CSCS
== END 2020-05-01 19:00 | disposition home or self-care (01) ==
LOC: PT 07:00
PROVIDERS: PCP Family Medicine; Referring Provider Obstetrics & Gynecology; Visit Provider Obstetrics & Gynecology
DX: R42 Dizziness and giddiness (principal)
CPT/HCPCS: 97161; 97530

== ENCOUNTER 2020-08-09 11:25 | Outpatient (CLI) | payer BC, SELFPAY ==
[2020-08-09] VITALS (12 sets, daily range): BP systolic 118; BP diastolic 67; PULSE 92–105; TEMP 36.6; O2SAT 94–98; BMI 38.5
--- NOTE | 2020-08-10 10:56 | OB.TRI.NOTE ---
History of Present Illness Date of Service: 08/09/20 Was patient seen by the physician?: No Reason For Visit: DECREASED MOVEMENT Date of Service: 08/09/20 Final GEETA: 11/22/20 Final GEETA Source: US <20 weeks Gestational age: 25 Weeks and 1 Days Allergies No Known Allergies Allergy (Verified 08/09/20 12:36) Physical Exam Vitals: Vital Signs Temp Pulse BP Pulse Ox 97.8 F 92 118/67 94 08/09/20 11:44 08/09/20 12:54 08/09/20 11:44 08/09/20 12:54 NST - FHR Rate Baby A Baseline: 140 Variability:: Moderate Accelerations:: 10 x 10 Decelerations:: None NST Reactive:: Yes, Appropriate for gestational age Uterine Activity:: quiet - FHR Rate Baby B Baseline: 120 Variability:: Moderate Accelerations:: 10 x 10 Decelerations:: None NST Reactive:: Yes, Appropriate for gestational age Uterine Activity:: quiet Impression/Plan 25 weeks and 1 day with di-ditwins with decreased movement. Now feeling movement. Reactive NST for baby A and baby B. All reassuring. Patient initially with nausea and diarrhea, Covid negative. Tolerating p.o. hydration and to DC home with Imodium. Okay to discharge home with precautions. We will follow-up at scheduled appointments.
== END 2020-08-09 13:10 | disposition home or self-care (01) ==
LOC: WPOUT 11:27 → WP 11:28
PROVIDERS: PCP Family Medicine; Referring Provider Obstetrics & Gynecology; Visit Provider Obstetrics & Gynecology
DX: O36.8120 Decreased fetal movements, second trimester, not applicable or unspecified (principal); O30.042 Twin pregnancy, dichorionic/diamniotic, second trimester; Z3A.25 25 weeks gestation of pregnancy
CPT/HCPCS: 59050; 87426; 99218; G0378

== ENCOUNTER → 2020-08-21 10:06 | Outpatient (CLI) | payer BC, SELFPAY ==
[2020-08-09 11:39] VITALS: BMI 38.5
[2020-08-21 13:17] LABS: Hematocrit 32.6 % (37-47); Hemoglobin 10.5 g/dL (12.0-15.0); Mean Corp Hgb Conc 32.2 g/dL (32-36); Mean Corpuscular Hgb 30.6 pg (27.0-32.0); Mean Platelet Vol. 10.2 fl (6.2-12.0); Platelet Count 256 K/mm3 (150-450); RBC Distribution Width CV 14.4 % (11.6-14.6); RBC Distribution Width SD 49.6 fl (35.1-43.9); Red Blood Count 3.43 M/mm3 (4.2-5.4); White Blood Count 8.4 K/mm3 (4.4-11.0)
[2020-08-21 13:23] LABS: Glucose Challenge Gest 1H 50g 135 mg/dL (70-140)
== END ==
PROVIDERS: PCP Family Medicine; Visit Provider Obstetrics & Gynecology
DX: Z34.82 Encounter for supervision of other normal pregnancy, second trimester (principal)
CPT/HCPCS: 36415; 82950; 85027

== ENCOUNTER 2020-10-23 00:30 | Outpatient (CLI) | payer BC, SELFPAY ==
[2020-08-09 11:39] VITALS: BMI 38.5
[2020-10-23] VITALS (10 sets, daily range): BP systolic 116–131; BP diastolic 70–86; PULSE 86–109; TEMP 37.1–37.3; O2SAT 95–100; BMI 39.8
[2020-10-23] MEDS: Lactated Ringers 1,000 ML 999 ML IV (01:25)
[2020-10-23 01:38] LABS: Absolute Lymphocyte Count 1.59 X10^3/uL (0.83-4.51); Absolute Neutrophil Count 5.7 X10^3/uL (2.0-7.7); Basophil# 0.01 X10^3/uL; Basophil% 0.1 % (0-1); Eosinophil# 0.04 X10^3/uL; Eosinophils% 0.5 % (0-5); Hematocrit 33.1 % (37-47); Hemoglobin 10.8 g/dL (12.0-15.0); Lymphocyte # 1.59 X10^3/ul (0.83-4.51); Lymphocyte % 20.2 % (19-41); Mean Corp Hgb Conc 32.6 g/dL (32-36); Mean Corpuscular Hgb 30.1 pg (27.0-32.0); Mean Corpuscular Volume 92.2 fL (81-99); Mean Platelet Vol. 10.4 fl (6.2-12.0); Monocyte# 0.47 X10^3/uL; NRBC Flagged by Analyzer 0 % (0-5); Neutrophil # 5.72 X10^3/uL (2.7-7.7); Neutrophil % 72.8 % (47-70); Platelet Count 220 K/mm3 (150-450); RBC Distribution Width CV 16.3 % (11.6-14.6); RBC Distribution Width SD 54.7 fl (35.1-43.9); Red Blood Count 3.59 M/mm3 (4.2-5.4); White Blood Count 7.9 K/mm3 (4.4-11.0)
[2020-10-23 02:41] LABS: Mucous, Urine 0 SEEN /hpf (<or=2+); Red Blood Cells-Urine 0 SEEN /hpf (0-5)
[2020-10-23 02:47] LABS: Color, Urine Yellow (Yellow); Glucose, Dipstick Normal (Normal); Ketone-Dipstick Negative (Negative); Leukocyte Esterase-Dipstick 100 /ul (Negative); Nitrite-Dipstick Negative (Negative); Occult Blood-Urine Negative /ul (Negative); Protein-Dipstick 30 mg/dl (Negative); Urine Bilirubin Dipstick Negative (Negative); Urine Clarity Clear (Clear); Urine Urobilinogen Normal (Normal)
[2020-10-23 02:55] LABS: Bacteria 1+ /hpf (None Seen); Squamous Epithelial Cells - UA 10-25 SEEN /hpf (5-10); Transitional Epithelial - Ur 0-5 SEEN /hpf (0-5); White Blood Cells 0-5 SEEN /hpf (0-5)
[2020-10-23 03:00] LABS: Group B Strep DNA By PCR POSITIVE (Negative); Probe Check PASS
[2020-10-23] MEDS: Mag Hydrox/Al Hydrox/Simeth 30 ML UDC PO (03:59)
[2020-10-23] MEDS: Acetaminophen 500 MG Tablet 1000 MG PO (03:59)
--- NOTE | 2020-10-23 20:29 | OB.TRI.HP_ITS ---
HPI - General HPI Narrative JOSE A ANGUIANO, is a 34 F who presents to labor and delivery with some contractions. care has been remarkable for twin gestation. She is presently at 35+ weeks gestation and has noted some contractions earlier today. She denies any leaking of fluid or bleeding. Good movement is noted. PFSH Home Medications PNV cmb#95-ferrous fumarate-FA [ Caplet] 1 ea PO DAILY 07/05/18 [History Last Taken 10/22/20 21:00] cholecalciferol (vitamin D3) [Vitamin D3] 2,000 unit PO DAILY 07/05/18 [History Last Taken 10/22/20 21:00] fluticasone propionate 1 spray NASAL DAILY 11/19/18 [History Last Taken 10/22/20 22:00] pantoprazole 40 mg PO DAILY 11/19/18 [History Last Taken 10/22/20 17:30] ascorbic acid (vitamin C) 1,000 mg PO DAILY 08/09/20 [History Last Taken 10/22/20 21:00] Allergy/AdvReac Type Severity Reaction Status Date / Time No Known Allergies Allergy Verified 08/09/20 12:36 Surgical History (Updated 10/23/20 @ 01:[address] [facility]) History of surgery Previous section Social History Smoking Status: Never smoker History Elective abortions Hx Para 1 Spontaneous abortions Hx # Term Pregnancies Ectopic pregnancies Hx # Pregnancies Multiple births # of living children NST FHR Rate Baby A NST Reactive:: Yes FHR Category:: Category I FHR Rate Baby B NST Reactive:: Yes FHR Category:: Category I Assessment & Plan Assessment/Plan (1) False labor, antepartum: PLAN: 35+ week twin intrauterine with transient contractions. No cervical change after monitoring. No evidence of rupture of membranes. Reactive nonstress test x2. Encourage routine follow-up in the offi ce and to call if she has increasing contractions.
== END 2020-10-23 04:00 | disposition home or self-care (01) ==
LOC: WPOUT 00:35 → WP 00:35
PROVIDERS: PCP Family Medicine; Referring Provider Obstetrics & Gynecology; Visit Provider Obstetrics & Gynecology
DX: O47.03 False labor before 37 completed weeks of gestation, third trimester (principal); O30.003 Twin pregnancy, unspecified number of placenta and unspecified number of amniotic sacs, third trimester; O34.219 Maternal care for unspecified type scar from previous cesarean delivery; Z3A.35 35 weeks gestation of pregnancy
CPT/HCPCS: 96360; 59025; 59050; 81001; 85025; 86850; 86900; 86901; 87653; 99218; J7120; G0378

== ENCOUNTER → 2020-10-25 | Outpatient (CLI) | payer BC, SELFPAY ==
[2020-10-23 00:37] VITALS: BMI 39.8
== END | disposition home or self-care (01) ==
LOC: LABSPEC 14:51
PROVIDERS: PCP Family Medicine; Visit Provider Obstetrics & Gynecology
DX: R19.7 Diarrhea, unspecified (principal); R10.9 Unspecified abdominal pain
CPT/HCPCS: 87493; 87506

== ENCOUNTER → 2020-11-03 | Outpatient (CLI) | payer BC, SELFPAY ==
[2020-10-23 00:37] VITALS: BMI 39.8
== END | disposition home or self-care (01) ==
LOC: LABSPEC 16:27
PROVIDERS: PCP Family Medicine; Referring Provider Obstetrics & Gynecology; Visit Provider Obstetrics & Gynecology
DX: Z20.822 Contact with and (suspected) exposure to COVID-19 (principal)
CPT/HCPCS: 87635; C9803; U0005; U0003

== ENCOUNTER 2020-11-08 05:05 | Inpatient (IN) | payer BC, SELFPAY ==
[2020-08-09 11:39] VITALS: BMI 38.5
[2020-10-23 00:37] VITALS: BMI 39.8
[2020-11-08] VITALS (20 sets, daily range): BP systolic 104–131; BP diastolic 52–83; PULSE 63–100; RESP 12–18; TEMP 35.8–36.4; O2SAT 93–98; BMI 40.3
[2020-11-08] MEDS: Lactated Ringers 1,000 ML 999 ML IV (05:40)
[2020-11-08 05:49] LABS: Absolute Lymphocyte Count 1.33 X10^3/uL (0.83-4.51); Absolute Neutrophil Count 3.5 X10^3/uL (2.0-7.7); Eosinophil# 0.04 X10^3/uL; Eosinophils% 0.8 % (0-5); Hematocrit 32.1 % (37-47); Hemoglobin 10.6 g/dL (12.0-15.0); Lymphocyte # 1.33 X10^3/ul (0.83-4.51); Lymphocyte % 25.3 % (19-41); Mean Corpuscular Hgb 30.6 pg (27.0-32.0); Mean Corpuscular Volume 92.8 fL (81-99); Mean Platelet Vol. 10.6 fl (6.2-12.0); Monocyte# 0.39 X10^3/uL; Monocyte% 7.4 % (0-10); NRBC Flagged by Analyzer 0 % (0-5); Neutrophil # 3.46 X10^3/uL (2.7-7.7); Neutrophil % 65.9 % (47-70); Platelet Count 219 K/mm3 (150-450); RBC Distribution Width CV 16.2 % (11.6-14.6); RBC Distribution Width SD 54.4 fl (35.1-43.9); Red Blood Count 3.46 M/mm3 (4.2-5.4); White Blood Count 5.3 K/mm3 (4.4-11.0)
[2020-11-08] MEDS: Acetaminophen 500 MG Tablet 1000 MG PO ×3 (06:05→18:44)
[2020-11-08] MEDS: Lactated Ringers 1,000 ML 150 ML IV (06:46)
[2020-11-08] MEDS: Sodium Citrate/Citric Acid 30 ML UDC PO (06:46)
--- NOTE | 2020-11-08 07:02 | PCM.HP.OB ---
HPI - General General Date of Admission: 11/08/20 HPI Narrative JOSE A ANGUIANO, is a 34 F with dichorionic diamnionic twin gestation who presents at 38 weeks gestation for scheduled section. Maternal Data Information GEETA Calculator Estimated Delivery Date Method Current WG Current Estimate 11/22/20 Manual 38w 0d [facility] Medical History (Updated 11/08/20 @ 07:[address] Eun Brantley MD) Seasonal allergies Subclinical hypothyroidism Home Medications PNV cmb#95-ferrous fumarate-FA [ Caplet] 1 ea PO DAILY 07/05/18 [History Last Taken 11/07/20 21:00] cholecalciferol (vitamin D3) [Vitamin D3] 2,000 unit PO DAILY 07/05/18 [History Last Taken 11/07/20 21:00] fluticasone propionate 1 spray NASAL DAILY 11/19/18 [History Last Taken 11/07/20 21:00] pantoprazole 40 mg PO DAILY 11/19/18 [History Last Taken 11/07/20 21:00] ascorbic acid (vitamin C) 1,000 mg PO DAILY 08/09/20 [History Last Taken 10/22/20 21:00] Allergy/AdvReac Type Severity Reaction Status Date / Time No Known Allergies Allergy Verified 11/08/20 05:39 Surgical History (Updated 11/08/20 @ 07:[address] Eun Brantley MD) History of surgery Previous section Social History Smoking Status: Never smoker History 2 Elective abortions Hx Para 1 Spontaneous abortions Hx # Term Pregnancies Ectopic pregnancies Hx # Pregnancies Multiple births # of living children Past Pregnancies Del. Date Name GA/Weeks Outcome Route Bth Weight Gen Labor Lgth Anesthesia Del Locatn Provider FOB 12/07/18 [place] 41 live - full term Female 23 epidural [facility] Sima Alva Delivery Date: 12/07/18 Arrest of descent, chorioamnionitis Eun Easton NST FHR Rate Baby A Baseline: 138 bpm FHR Rate Baby B Baseline: 136 bpm Assessment Assessment Detail: FHR obseved by US Vital Signs Vital Signs Vital Signs: 11/08/20 05:54 Temperature 97.2 F L Temperature Source Temporal Pulse Rate 100 Respiratory Rate 16 Blood Pressure 127/83 H Blood Pressure Mean 97 Blood Pressure Source Monitor Blood Pressure Position Semi-Fowlers Blood Pressure Location Right Arm Pulse Ox 97 Oxygen Delivery Method Room Air Weight Weight: 123.921 kg Body Mass Index (BMI) 40.3 Physical Exam Const alert, oriented x3 and no apparent distress HEENT normocephalic Resp normal respiratory effort, normal air movement and clear to auscultation bilaterally Cardio regular rate and regular rhythm GI normal to inspection, nondistended, normoactive bowel sounds, soft to palpation, non-tender and non-distended Inspection: gravid Labs Labs Labs: Blood Type O POSITIVE Antibody Screen NEGATIVE Hct 32.1 % (37-47) L Hgb 10.6 g/dL (12.0-15.0) L Rubella IgG Antibody 115.1 IU/mL Hep Bs Antigen Non-Reactive (Nonreactive) Neisseria gonorrhoeae DNA (EDDI) Negative (Negative) HIV 1&2 Antibody Non-Reactive (Nonreactive) C.trachomatis DNA (PCR) Negative (Negative) Glucose 1 Hr 50 gm 135 mg/dL (70-140) Group B Strep DNA POSITIVE (Negative) H Rhogam given: No Assessment & Plan (1) Dichorionic diamniotic twin in third trimester: (2) Breech presentation: COMMENT: US confirms fetus A breech, fetus B transverse Proceed as planned with section Patient and given opportunity to answer questions and questions answered to their satisfaction. (3) 38 weeks gestation of :
[2020-11-08] MEDS: Methylergonovine 0.2 MG/ML Ampul IM (08:05)
--- NOTE | 2020-11-08 08:50 | OP.PCM_ITS ---
Assessment & Plan (1) Dichorionic diamniotic twin in third trimester: (2) Breech presentation: COMMENT: US confirms fetus A breech, fetus B transverse Proceed as planned with section Patient and given opportunity to answer questions and questions answered to their satisfaction. (3) 38 weeks gestation of : (4) delivery delivered: Maternal Data Information GEETA Calculator Estimated Delivery Date Method Current WG Current Estimate 11/22/20 Manual 38w 0d Details Operative Information Date of Procedure: 11/08/20 Pre-Operative Diagnosis: 1. 38 weeks gestation 2. Dichorionic diamniotic twin gestation 3. Previous section 4. Breech-breech presentation Post-Operative Diagnosis: 1. 38 weeks gestation 2. Dichorionic diamniotic twin gestation 3. Previous section 4. Breech-breech presentation Indications for : Repeat Elective and Breech Indications Narrative: 34-year-old 2 para 1-0-0-1 presents at 38 weeks gestational age with dichorionic diamniotic twin gestation in breech transverse presentation for scheduled section. Patient was advised to proceed with section given persistent presenting breech status. Procedural risks, benefits, indications and alternatives were reviewed and patient desired to proceed. Classification: Scheduled Procedure Type: low transverse collector of aquarium specimens #1: Delio Lopez Type of Anesthesia: Spinal Anesthesiologist: Martín Jackson Antibiotic Given: Ancef 3 grams IV x1 Drain: Ramirez to straight drain Estimated Blood Loss: 900 ml Fluids Replaced: 1200 ml Findings Description of Procedure: The patient was taken to the operating room and spinal analgesia was administered. She is placed in a dorsal supine position with left lateral tilt. The perineum and abdomen were prepped and draped in sterile fashion. And the spinal was found to be adequate. A Pfannenstiel incision was made using a scalpel and brought down to incise the subcutaneous tissue and rectus fascia at the midline. Subcutaneous tissue was bluntly dissected off the fascia laterally. The fascial incision was dissected laterally and cephalad using curved Guerin scissors. The superior leaflet of the rectus fascia was grasped using Linda clamps and bluntly dissected and sharply dissected from the underlying rectus muscle. In a similar fashion the inferior rectus fascia was dissected from the underlying muscle. The rectus muscles were bluntly at the midline. The peritoneum was identified and entered [sharply]. The bladder blade was placed into the abdomen and the vesicouterine peritoneal fold identified. The fold was incised and a bladder flap created. Bladder blade was then repositioned to the abdomen. A low transverse hysterotomy was made using the [Metzenbaum scissors] to level of the membranes. The hysterotomy was extended bluntly cephalad and caudad. The presenting part as fetus a was palpated and notably in courtney breech presentation. The breech within the amnion was guided through the hysterotomy with spontaneous rupture of membranes occurring. The fluid was clear. The male infant was delivered to the level of the shoulders using gentle bidirectional rotation and the head delivered spontaneously. The infant's mouth and nares were bulb suctioned and the stimulated. The cord was doubly clamped and cut and infant passed to the waiting nursery personnel. Fetus B subsequently assumed the cephalic presentation. Gentle fundal pressure was applied and the head was brought to the level of the hysterotomy. Amniotomy was performed with clear fluid and the delivered revealing vigorous [female] infant. The cord was doubly clamped and cut. The infant was passed to awaiting [nursery personnel]. The placentas were [expressed] from the uterus and appeared intact on inspection. The uterus was cleared of debris. The hysterotomy was then repaired using 0 Vicryl running lock suture. A second imbricating layer was also placed for additional hemostasis. A figure of eight suture was placed for additional hemostasis along the suture line and Kylah applied with good hemostasis. The bladder blade was removed. The anterior cul-de-sac was cleared of debris. The peritoneum and rectus muscles were reapproximated using 2-0 Vicryl running suture. The rectus fascia was closed using 0 Stratafix running suture. The subcutaneous tissue was sponge irrigated and small capillary bleeding controlled using the Bovie device. The subcutaneous tissue was reapproximated using 2-0 Vicryl. The skin was closed using 4-0 Monocryl subcuticularly by the [employer] under my supervision. A Mepilex occlusive dressing was placed over the incision. The fundus was firm. The patient was then transferred to the recovery room without complication. Sponge, instrument, and needle counts were correct ?2. Presentation: Positive for Courtney Breech Amniotic Membrane Rupture Type: Spontaneous Amniotic Fluid Description: Clear Placental Delivery Description: Expressed Placenta Disposition: [facility] Cord Vessel Description: 3 Vessels Cord Entanglement: Around neck x 1, loose Nuchal Cord Compression: Without compression Cord Gases: ABG and VBG A Gender: Male (1 minute): 7 (5 minute): 9 Delayed Cord Clamping: Yes Complications Risks of Surgery Discussed w/Patient: Bleeding, Anesthesia Risks, Infection, Permanency, Failure Rate of 1 to 2%, Injury to surrounding structure(s) including bowel and bladder and - Baby B Information Amniotic Membrane Rupture Type: Artificial Presentation: Vertex Operative Information Mode of Delivery: Cord Vessel Description: 3 Vessels Cord Entanglement: None Nuchal Cord Compression: Without compression Cord Gases: ABG and VBG B gender: Female (1 minute): 9 (5 minute): 10 Delayed Cord Clamping: Yes
[2020-11-08] MEDS: Oxytocin 30 units/NS 500 ml 30 UNITS/500 ML IV.SOLN 167 UNITS IV (09:00)
[2020-11-08] MEDS: Ketorolac 30 MG/ML Syringe IV ×3 (09:40→21:53)
[2020-11-08] MEDS: Lactated Ringers 1,000 ML 100 ML IV (12:00)
[2020-11-08] MEDS: Cefazolin 1 GM/50 ML BAG IV ×2 (15:52→23:17)
[2020-11-08] MEDS: Heparin Injection (Vial) 5,000 UNIT/ML VIAL 5000 UNIT SC (15:52)
[2020-11-08] MEDS: 0.9% Saline Lock 10 ML Syringe IV (21:53)
[2020-11-08] MEDS: Fluticasone 0.05% 1 SPRAY NASAL.SRY NASAL (21:53)
[2020-11-09] MEDS: Acetaminophen 500 MG Tablet 1000 MG PO ×4 (01:04→18:45)
[2020-11-09 03:15] VITALS: BP 112/44; PULSE 68; RESP 18; TEMP 36.2
[2020-11-09] MEDS: Ketorolac 30 MG/ML Syringe IV (04:32)
[2020-11-09] MEDS: Heparin Injection (Vial) 5,000 UNIT/ML VIAL 5000 UNIT SC ×2 (04:32→14:22)
[2020-11-09] MEDS: 0.9% Saline Lock 10 ML Syringe IV ×2 (04:32→10:43)
[2020-11-09 04:44] LABS: Hematocrit 27.5 % (37-47); Mean Corp Hgb Conc 32.7 g/dL (32-36); Mean Corpuscular Hgb 30.9 pg (27.0-32.0); Mean Corpuscular Volume 94.5 fL (81-99); Mean Platelet Vol. 10.2 fl (6.2-12.0); Platelet Count 183 K/mm3 (150-450); RBC Distribution Width CV 16.3 % (11.6-14.6); RBC Distribution Width SD 55.6 fl (35.1-43.9); Red Blood Count 2.91 M/mm3 (4.2-5.4); White Blood Count 7.3 K/mm3 (4.4-11.0)
[2020-11-09 08:10] VITALS: BP 111/57; RESP 16; TEMP 36; O2SAT 97
--- NOTE | 2020-11-09 08:28 | PCM.PN.OB ---
Subjective Subjective Postop day 1 status post repeat section. Feeling well, pain controlled. Bleeding slowing down. Objective Data Objective Data Vital Signs: Vital Signs Temp Pulse Resp BP Pulse Ox 97.1 F L 68 18 112/44 L 96 11/09/20 03:15 11/09/20 03:15 11/09/20 03:15 11/09/20 03:15 11/08/20 20:18 Oxygen Delivery Method Room Air Weight: 123.921 kg Body Mass Index (BMI) 40.3 Intake & Output: Intake and Output for Last 24 Hours 11/07/20 11/08/20 11/09/20 23:59 23:59 23:59 Intake Total 2775 / 2775 Output Total 1450 / 1450 1000 / 1000 Balance 1325 / 1325 -1000 / -1000 Lab / Micro Data Result Diagrams: 11/09/20 04:40 Labs: Laboratory Results - last 24 hr 11/09/20 04:40 WBC 7.3 RBC 2.91 L Hgb 9.0 L Hct 27.5 L MCV 94.5 MCH 30.9 MCHC 32.7 RDW Std Deviation 55.6 H RDW Coeff of Charles 16.3 H Plt Count 183 MPV 10.2 ROS Constitutional Constitutional: Reports systems reviewed and no addt'l complaints, except as documented Eyes Eyes: Reports systems reviewed and no addt'l complaints, except as documented ENT HEENT: Reports systems reviewed and no addt'l complaints, except as documented Cardiovascular Cardiovascular: Reports systems reviewed and no addt'l complaints, except as documented Respiratory/Chest Respiratory/Chest: Reports systems reviewed and no addt'l complaints, except as documented Gastrointestinal Gastrointestinal: Reports systems reviewed and no addt'l complaints, except as documented Genitourinary Genitourinary: Reports systems reviewed and no addt'l complaints, except as documented Musculoskeletal Musculoskeletal: Reports systems reviewed and no addt'l complaints, except as documented Integumentary Integumentary: Reports systems reviewed and no addt'l complaints, except as documented Neurologic Neurologic: Reports systems reviewed and no addt'l complaints, except as documented Psychiatric Psychiatric: Reports systems reviewed and no addt'l complaints, except as documented Physical Exam Const alert, oriented x3 and no apparent distress HEENT normocephalic Head and Scalp: atraumatic Resp normal respiratory effort Cardio regular rate GI normal to inspection, nondistended, normoactive bowel sounds GI Narrative: Dressing clean and dry, uterus 2 cm below umbilicus. Neuro no focal motor deficits and no sensory deficits noted Assessment & Plan (1) delivery delivered: PLAN: Postop day 1 status post repeat section. Pain controlled. Acute on chronic anemia, for iron supplementation at home. Planned home tomorrow.
[2020-11-09] MEDS: Senna/Docusate Sodium 1 Tablet PO (10:42)
[2020-11-09] MEDS: Pantoprazole Sodium 40 MG Tablet PO (10:43)
[2020-11-09] MEDS: Ibuprofen 600 MG Tablet PO ×3 (10:43→22:13)
[2020-11-09 14:20] VITALS: BP 111/67; PULSE 90; RESP 16; TEMP 36.1
[2020-11-09 19:59] VITALS: BP 112/74; PULSE 89; RESP 16; TEMP 36.2
[2020-11-09] MEDS: Fluticasone 0.05% 1 SPRAY NASAL.SRY NASAL (22:13)
[2020-11-10] MEDS: Acetaminophen 500 MG Tablet 1000 MG PO ×2 (01:32→07:01)
[2020-11-10] MEDS: Heparin Injection (Vial) 5,000 UNIT/ML VIAL 5000 UNIT SC (01:33)
[2020-11-10] MEDS: oxyCODONE 5 MG Tablet PO ×2 (01:38→08:34)
[2020-11-10 01:40] VITALS: BP 116/53; PULSE 83; RESP 18; TEMP 36.1
[2020-11-10] MEDS: Ibuprofen 600 MG Tablet PO ×2 (04:39→10:08)
[2020-11-10 08:00] VITALS: BP 119/76; PULSE 83; RESP 16; TEMP 36.6; O2SAT 97
--- NOTE | 2020-11-10 08:59 | PCM.DC.SUM ---
Providers Date of Admission: 11/08/20 Primary Care Physician: Dr. Zaheer Hamilton MD Reason For Visit: PRIMARY C SECTION Diagnosis Discharge Diagnosis (1) delivery delivered: Status: Acute Code(s): O82 - Encounter for delivery without indication Plan: Rh positive Routine post-op care D/C home Medications at Discharge Home Medications PNV cmb#95-ferrous fumarate-FA [] 1 ea PO DAILY 07/05/18 cholecalciferol (vitamin D3) [Vitamin D3] 2,000 unit PO DAILY 07/05/18 fluticasone propionate 1 spray NASAL DAILY 11/19/18 pantoprazole 40 mg PO DAILY 11/19/18 ascorbic acid (vitamin C) 1,000 mg PO DAILY 08/09/20 ferrous sulfate 325 mg PO BID #60 tab NS 11/10/20 ibuprofen 600 mg PO Q8H PRN PRN #30 tab NS 11/10/20 oxycodone 5 mg PO Q4H PRN PRN 7 Days #20 tab NS 11/10/20 Hospital Course Operations section Summary of Care Provided Hospital Course: 34yo admitted at 38 weeks gestation with dichorionic diamnionic twin gestation for scheduled repeat section. She had an uncomplicated section with an unremarkable hospital course. The patient was out of bed, ambulating, voiding and passing flatus. She was discharged to home on post operative day #2. Physical Exam Narrative Out of bed, ambulating, voiding without difficulty., passing flatu Had a bowel movements. Tolerates a regular diet. Pain is controlled. Const alert, oriented x3 and no apparent distress General Appearance: cooperative and comfortable HEENT normocephalic Resp Auscultation: clear to auscultation bilaterally Cardio regular rate, regular rhythm, S1 normal heart sound and S2 normal heart sound OB / External & Speculum: other Uterus Palpation: other OB Fundus firm and nontender Extremity Extremity Narrative: 1+ b/l LE pitting edema to calves General Extremity: edema bilateral ABG / Lab / Microbiology Data Result Diagrams: 11/09/20 04:40 D/C Instructions Discharge Diet: No restrictions Discharge Activity: Return to Normal Activity and May Shower May resume sexual activity in: 4-6 weeks Lifting Restricted to (Lbs): 10 Call your doctor if you observe: Fever of 101 or Higher, Inability to urinate, Inability to have a bowel movement, Using more than one pad per hour, Shortness of breath, Chest pain, Calf discomfort and Uncontrolled pain Suture Line Care: Avoid Pulling/Pushing Remove Dressing in: 5 days Cleanse incision/area with: Soap & Water Please Follow Up With: Eun Butler MD When: 1-2 weeks for incision check 6 weeks for visit Meaningful Use Info Meaningful Use Diagnoses (Choose all that apply): None applicable Discharge Plan Admission Admit Date/Time: 11/08/20 05:05 Primary Reason for Your Visit: section Attending Provider: Eun Butler Primary Care Provider: Zaheer Hamilton Instructions Patient Instructions: After a Discharge Orders/Prescriptions Prescriptions: New ibuprofen 600 mg Tablet 600 mg PO Q8H PRN PRN (Reason: pain) Qty: 30 RF: 0 oxycodone 5 mg Tablet 5 mg PO Q4H PRN PRN (Reason: Pain Score 4-10) 7 Days Qty: 20 RF: 0 ferrous sulfate 325 mg (65 mg iron) tablet,delayed release (DR/EC) 325 mg PO BID Qty: 60 RF: 0 Continued cholecalciferol (vitamin D3) [Vitamin D3] 2,000 UNIT capsule 2,000 unit PO DAILY RF: 0 PNV cmb#95-ferrous fumarate-FA [] 1 EACH tablet 1 ea PO DAILY RF: 0 pantoprazole 40 MG tablet 40 mg PO DAILY RF: 0 fluticasone propionate 1 SPRAY spray,suspension 1 spray NASAL DAILY RF: 0 ascorbic acid (vitamin C) 1,000 MG tablet 1,000 mg PO DAILY RF: 0 Referrals / Follow Up: Zaheer Hamilton MD [Primary Care Provider] - Disposition Disposition (needs filled in before D/C Order can be placed): Home, self care
[2020-11-10] MEDS: Senna/Docusate Sodium 1 Tablet PO (10:08)
[2020-11-10] MEDS: Pantoprazole Sodium 40 MG Tablet PO (10:32)
[2020-11-10 12:55] VITALS: BP 121/76; PULSE 82; RESP 18; TEMP 36.2; O2SAT 97
== END 2020-11-10 13:02 | disposition home or self-care (01) | DRG 788 ==
PROVIDERS: Admitting Provider Obstetrics & Gynecology; PCP Family Medicine; Referring Provider Obstetrics & Gynecology; Visit Provider Obstetrics & Gynecology
PROC: 10D00Z1 Extraction of Products of Conception, Low, Open Approach (ICD-10-PCS; CPT 59514; principal; 2020-11-08 07:15)
DX: O32.1XX1 Maternal care for breech presentation, fetus 1 (principal); O69.81X2 Labor and delivery complicated by cord around neck, without compression, fetus 2; O99.02 Anemia complicating childbirth; D64.9 Anemia, unspecified; O30.043 Twin pregnancy, dichorionic/diamniotic, third trimester; Z3A.38 38 weeks gestation of pregnancy; Z37.2 Twins, both liveborn
CPT/HCPCS: 85025; 85027; 86850; 86900; 86901; 99218; J7120; A4216; G0378; J2405

== ENCOUNTER → 2020-12-20 | Outpatient (CLI) | payer BC, SELFPAY ==
[2020-11-08 05:34] VITALS: BMI 40.3
[2020-12-25 12:40] LABS: HPV APTIMA, High Risk Negative (Negative)
== END | disposition home or self-care (01) ==
LOC: LABSPEC 10:40
PROVIDERS: PCP Family Medicine; Visit Provider Obstetrics & Gynecology
DX: Z12.4 Encounter for screening for malignant neoplasm of cervix (principal)
CPT/HCPCS: 87624; 88175; G0145

== ENCOUNTER → 2022-11-11 | Outpatient (CLI) | payer BC, SELFPAY ==
[2022-11-11 17:50] LABS: Hematocrit 36.1 % (37-47); Hemoglobin 11.7 g/dL (12.0-15.0); Mean Corp Hgb Conc 32.4 g/dL (32-36); Mean Corpuscular Hgb 30.7 pg (27.0-32.0); Mean Corpuscular Volume 94.8 fL (81-99); Mean Platelet Vol. 10.1 fl (6.2-12.0); Platelet Count 267 K/mm3 (150-450); RBC Distribution Width CV 12.6 % (11.6-14.6); RBC Distribution Width SD 43.3 fl (35.1-43.9); Red Blood Count 3.81 M/mm3 (4.2-5.4); White Blood Count 5.5 K/mm3 (4.4-11.0)
[2022-11-11 18:11] LABS: ALB/GLOB Ratio 0.9 RATIO (0.9-2.4); AST(SGOT) 19 U/L (15-37); Alanine Aminotransfer ALT/SGPT 24 U/L (13-56); Albumin, Serum 3.4 g/dL (3.2-5.0); Alkaline Phosphatase 69 U/L (45-117); Anion Gap 1 (5-15); BUN 20 mg/dL (7-18); BUN/Creat Ratio 27.4 RATIO (10-20); Chloride 109 mmol/L (98-107); Creatinine, Serum 0.73 mg/dL (0.55-1.02); EST Glomerular Filtration Rate 95 mL/min (>60); Est Glom Filt Rate - Afr Amer 115 mL/min (>60); Globulin 3.9 g/dL (2.2-4.2); Glucose 97 mg/dL (74-106); Potassium 3.9 mmol/L (3.5-5.1); Protein, Total 7.3 g/dL (6.4-8.2); Sodium Level 137 mmol/L (136-145); Thyroid Stim Hormone (TSH) 2.14 uIU/mL (0.358-3.74)
[2022-11-11 18:13] LABS: Vitamin B12 398 pg/mL (211-911); Vitamin D,25 Hydroxy 44.6 ng/mL
== END | disposition home or self-care (01) ==
LOC: MFPLAB 16:12
PROVIDERS: Nurse Practitioner Family; PCP Family Medicine; Visit Provider Family Medicine
DX: R53.83 Other fatigue (principal); Z13.1 Encounter for screening for diabetes mellitus
CPT/HCPCS: 36415; 80053; 82306; 82607; 84443; 85027

== ENCOUNTER 2023-01-08 09:30 | Outpatient (RCR) | payer BC, SELFPAY ==
--- NOTE | 2022-11-20 09:45 | HP.PTEVAL ---
Patient's Visit Information JOSE A ANGUIANO is a 36 year old F referred to Physical Therapy by SHONNA Whitlock with a diagnosis of L sciatica. Date of Evaluation: 11/20/22 Physical Therapist: Sammy Houston DPT, OCS, CSCS - Visit Plan Frequency: 1-2x /Week Duration: 4-6 Weeks Plan: 1-2x/week for 4-6 weeks for. . start weekly to monitor piriformis stretch adn HS stretch effect on pain, add LB yoga stretches and core/hip strength, consider DTR buttock if not improving. Next session core strength , hip strength ext adn rotations to HEP. - Subjective L sciatic has been an issue since with twins years ago. Seen chiropractor but not going away. Pain is L butt cheek and into HS slightly. Pain is up to 5/10 if standing too much or sitting too much. never a 0. No numbness or tingling in leg. Sleep is OK, sometimes uncomfy lying there. Employed but mostly home with kids. Works [employer] on feet and if works too long will get worse. Activities are interrupted and limited if it feels tight, picking up kids or anything off ground can be a struggle. Bending and lifting are a problem off ground. No other treatments. No regular exercises - Pain L butt Pain Intensity (Out of 10): 1 Pain Intensity Range: 1, 5 - Objective Walks into PT I without pain. Transfers bed and chair are I. LB AROM ext slight reproduction at end range min limited. SB and flexion are tight but not painful. Piriformis and HS L painful in buttock and tight vs R. tender L buittock and pirofrmis area to deep palpatioln. Hips abd, rotation and extension weak and painful on L in buttock with extension. 3+ L and 4- R. knee and ankle strength 4/5 B without myotomal problems. PA pressure LB just mild tight, no reporduction of symptoms. reflexes 1/3 patella and achilles B. Sensation WNL to gross light touch B. - slump, - SLR, but does stretch in buttock with HS stretch. - Balance/Special Test Scores Oswestry Low Back Score: 11 - Goals Goal 1:: Pain in L buttock intermittent adn 1/10 at worst and manageable with ex. 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 Goal Time Frame: 4-6 Weeks Goal 4:: work 6 hour shift without increased pain Goal Time Frame: 4-6 Weeks - Rehabilitation Potential Physical Therapy Diagnosis: L sciatica pain chronic muscular vs discal Rehabilitation Potential: Fair - Anticipated Interventions Patient/Client Instruction: Educate patient on: Condition, Plan of Care For the Purpose of:: To decrease pain, To increase ROM, To improve nutrient delivery to tissue, To improve muscle performance and motor function, To increase tolerance to activity/condition/position Therapeutic Exercise to Include: Strength training, Flexibilty training, Passive ROM, Active ROM, Dynamic Lumbar Stabilization For the Purpose of:: To decrease pain, To improve muscle performance and motor function, To increase tolerance to activity/condition/position, To improve ability of physical actions for home/community/work/leisure Manual Therapy Techniques to Include: Trigger point massage For the Purpose of:: To decrease pain Thank you for the opportunity to evaluate your patient. For Medicare and Medicare HMO plans, please review the plan of care and approve it. It will need to be FAXED BACK to us at [phone] for Medicare purposes. For Medicare only, by signing this I certify the plan of care. Please let me know if there are questions or concerns regarding this plan of care. Physician Signature: Date:
--- NOTE | 2023-01-08 09:55 | HP.PTDCSUM ---
Discharge Summary D/C summary: It has been my pleasure to treat JOSE A ANGUIANO referred by Deanna Duong NP-C, with the diagnosis of L sciatica for a total of 4 visit(s). Discharge Date: 01/08/23 Please see the following information for a summary of their discharge status. Subjective Subjective: I think it is better. Struggled to get all exercises done daily but gets something in everyday. I can get out of bed without pain. Getting dressed is much easier. Life activities are normal. Stretches really help out at home. F/u with doctor in February.icking up kids without a problem Working without pain. Pain L butt: Pain Intensity (Out of 10): 1 Overall Improvement % Improvement: 75 Objective Objective/Function: Full aROM lumbar without pain, some minor stiffness L buttock with flexion but otherwise no problems. No apin. Steps and walking are normal, bending is easy today. Goals Goal 1:: Pain in L buttock intermittent adn 1/10 at worst and manageable with ex. 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 d/c sentence: If there are questions or concerns regarding this patient's physical therapy, please feel free to call me at [phone]. Thank you for the referral of this patient. Sincerely, Sammy Houston, DPT, OCS, CSCS Balance/Gait/Functional tests Balance/Special Test Scores Oswestry Low Back Score: 5
== END 2023-01-08 19:00 | disposition home or self-care (01) ==
LOC: PT 09:30
PROVIDERS: PCP Family Medicine; Referring Provider Nurse Practitioner Family; Visit Provider Nurse Practitioner Family
DX: M54.32 Sciatica, left side (principal)
CPT/HCPCS: 97110; 97161; 97164

== ENCOUNTER → 2023-09-18 | Outpatient (CLI) | payer BC, SELFPAY ==
[2023-09-18 12:04] LABS: Absolute Lymphocyte Count 1.57 X10^3/uL (0.83-4.51); Absolute Neutrophil Count 4.2 X10^3/uL (2.0-7.7); Basophil# 0.01 X10^3/uL; Basophil% 0.2 % (0-1); Eosinophil# 0.05 X10^3/uL; Eosinophils% 0.8 % (0-5); Hematocrit 37.2 % (37-47); Lymphocyte # 1.57 X10^3/ul (0.83-4.51); Lymphocyte % 25.5 % (19-41); Mean Corp Hgb Conc 32.3 g/dL (32-36); Mean Corpuscular Hgb 30.1 pg (27.0-32.0); Mean Corpuscular Volume 93.2 fL (81-99); Mean Platelet Vol. 10.1 fl (6.2-12.0); Monocyte# 0.31 X10^3/uL; NRBC Flagged by Analyzer 0 % (0-5); Neutrophil % 68.2 % (47-70); Platelet Count 285 K/mm3 (150-450); RBC Distribution Width CV 12.7 % (11.6-14.6); RBC Distribution Width SD 43.6 fl (35.1-43.9); Red Blood Count 3.99 M/mm3 (4.2-5.4); White Blood Count 6.2 K/mm3 (4.4-11.0)
[2023-09-18 12:06] LABS: Erythrocyte Sedimentation Rate 9 mm/hr (0-30)
[2023-09-18 12:42] LABS: ALB/GLOB Ratio 0.9 RATIO (0.9-2.4); AST(SGOT) 16 U/L (15-37); Alanine Aminotransfer ALT/SGPT 23 U/L (13-56); Albumin, Serum 3.5 g/dL (3.2-5.0); Alkaline Phosphatase 73 U/L (45-117); Anion Gap 5 (5-15); BUN 22 mg/dL (7-18); BUN/Creat Ratio 30.3 RATIO (10-20); Calcium,Total 9.2 mg/dL (8.5-10.1); Chloride 107 mmol/L (98-107); Creatinine, Serum 0.73 mg/dL (0.55-1.02); EST Glomerular Filtration Rate 95 mL/min (>60); Est Glom Filt Rate - Afr Amer 115 mL/min (>60); Ferritin 134 ng/mL (8-252); Free T3 2.8 pg/mL (2.18-3.98); Glucose 92 mg/dL (74-106); Potassium 3.9 mmol/L (3.5-5.1); Protein, Total 7.5 g/dL (6.4-8.2); Sodium Level 139 mmol/L (136-145); T4 Free Direct 1.08 ng/dL (0.76-1.46); Thyroid Stim Hormone (TSH) 1.73 uIU/mL (0.358-3.74)
[2023-09-18 13:55] LABS: Hemoglobin A1c 5.2 % (3.8-5.6)
[2023-09-18 15:34] LABS: Progesterone Level 0.27 ng/mL (See Comment); Vitamin B12 512 pg/mL (211-911); Vitamin D,25 Hydroxy 45.7 ng/mL
[2023-09-19 17:07] LABS: Thyroglobulin Antibody < 1.0 IU/mL (0.0-0.9); Thyroid Peroxidase AB < 9 IU/mL (0-34)
== END | disposition home or self-care (01) ==
LOC: MFPLAB 10:55
PROVIDERS: PCP Family Medicine; Visit Provider Family Medicine
DX: R53.83 Other fatigue (principal)
CPT/HCPCS: 36415; 80053; 82306; 82607; 82627; 82728; 83036; 84144; 84403; 84439; 84443; 84481; 85025; 85652; 86376; 86800; 82626

== ENCOUNTER → 2024-12-15 | Outpatient (CLI) | payer OTHER, SELFPAY ==
[2024-12-15 12:48] LABS: Hematocrit 36.4 % (37-47); Hemoglobin 12.2 g/dL (12.0-15.0); Mean Corp Hgb Conc 33.5 g/dL (32-36); Mean Corpuscular Volume 92.2 fL (81-99); Mean Platelet Vol. 10.3 fl (6.2-12.0); Platelet Count 285 K/mm3 (150-450); RBC Distribution Width CV 12.3 % (11.6-14.6); RBC Distribution Width SD 41.2 fl (35.1-43.9); Red Blood Count 3.95 M/mm3 (4.2-5.4); White Blood Count 6.7 K/mm3 (4.4-11.0)
[2024-12-15 13:41] LABS: Anion Gap 12 (5-15); BUN 18 mg/dL (4-19); BUN/Creat Ratio 23.5 RATIO (10-20); Calcium,Total 9.4 mg/dL (7.6-11.0); Carbon Dioxide 22.1 mmol/L (21.0-32.0); Chloride 103 mmol/L (98-108); Glucose 93 mg/dL (70-99); Potassium 3.9 mmol/L (3.3-5.1)
== END | disposition home or self-care (01) ==
PROVIDERS: PCP Family Medicine; Visit Provider Nurse Practitioner Family
DX: R42 Dizziness and giddiness (principal)
CPT/HCPCS: 36415; 80048; 85027